=== PATIENT | male | born 1990 | race Caucasian/White ===

== ENCOUNTER 2020-06-11 16:23 | Emergency (ER) | payer OTHER, SELFPAY ==
--- NOTE | ~2020-06-11 | XR_ITS ---
EXAMINATION: XR finger 1st LT min 2V DATE: 06/11/2020 16:46 INDICATION: Penetrating wound to the left thumb. TECHNIQUE: Dorsal palmar and lateral views of the left thumb digit were obtained COMPARISON: Left hand radiographs dated 06/08/2012 FINDINGS: A screwdriver extends through the soft tissues at the ulnar aspect of the left thumb beginning near t he distal tip of the thumb and with the distal tip of the screwdriver position ulnar to the neck of t he proximal phalanx. No acute fracture. Old fourth metacarpal fracture with dorsal plate and screw fi xation which has healed in near-anatomic alignment. Joint spaces are normal. IMPRESSION: 1. Screwdriver in the soft tissues at the ulnar side of the left thumb. No acute osseous abnormality. Reviewed, dictated and finalized at location . [employer] IMPRESSION: 1. Screwdriver in the soft tissues at the ulnar side of the left thumb. No acut e osseous abnormality.
[2020-06-11 16:34] VITALS: BP 166/101; PULSE 75; RESP 18; TEMP 36.6; O2SAT 100
--- NOTE | 2020-06-11 16:54 | ED.UPPEXIN ---
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 While working on [employer] light. Patient denies other injuries. Does remember the last time of having a tetanus shot. Related Data Allergies Allergy/AdvReac Type Severity Reaction Status Date / Time No Known Drug Allergies Allergy Verified 02/10/12 13:55 Review of Systems Review of Systems: Narrative: CONSTITUTIONAL: Denies fever, chills, or sweats. EYES: Denies visual changes, redness, or discharge. ENT: Denies rhinorrhea, congestion, sore throat, or otalgia. CARDIOVASCULAR: Denies chest pain, palpitations, or edema. RESPIRATORY: Denies cough or dyspnea. GASTROINTESTINAL: Denies abdominal pain, nausea, vomiting, or diarrhea. GENITOURINARY: Denies dysuria or hematuria. SKIN: Denies rash or itching. MUSCULOSKELETAL: Denies back pain, joint pain, or myalgia. NEUROLOGIC: Denies headache, numbness, or weakness. PSYCHIATRIC: Denies anxiety or depression. PMFSH Social History Social History Smoking status: Never smoker Alcohol intake: current Exam Narrative: Exam Narrative: General appearance: Well-developed, well-nourished Skin: Normal color Chest and respiratory: Airway patent, no respiratory distress, no accessory muscle use Heart: Regular rate/rhythm Vascular: Normal peripheral pulses, normal capillary refill. Musculoskeletal: Left thumb showed a screwdriver. Penetrated the tip of the thumb at the palmar side parallel to the thumb, about 5 cm deep. No deformity Course Course Emergency Course: Improving Consultations Consultation #1: Dr. Howard Call office tomorrow for appointment Date: 06/11/20 Time: 17:16 Vital Signs Vital signs: Vital Signs Temperature 36.6 C 06/11/20 16:34 Pulse Rate 75 06/11/20 16:34 Respiratory Rate 18 06/11/20 16:34 Blood Pressure 166/101 H 06/11/20 16:34 Pulse Oximetry 100 06/11/20 16:34 Temperature 36.6 C 06/11/20 16:34 Pulse Rate 75 06/11/20 16:34 Respiratory Rate 18 06/11/20 16:34 Blood Pressure 166/101 H 06/11/20 16:34 Pulse Oximetry 100 06/11/20 16:34 Procedures Foreign Body Removal Foreign Body #1: Foreign Body Removal Date: 06/11/20 Foreign Body Removal Time: 16:59 Time Out Performed: no Site: left and other (Thumb) Description of foreign body: other (Screwdriver) Sedation/Analgesia: none Technique: manual removal Confirmed by:: direct visualization Complications: none Post-procedure exam: awake, alert Neurovascular: normal capillary fill, distal motor function normal and no change from pre-procedure Foreign Body Removal Narrative: A screwdriver, penetrated the tip of the left thumb at the palmar side parallel to the thumb, deep about 5 cm. No active bleeding on presentation, Slight bleeding after removal of the screwdriver, Betadine bath, topical Neosporin, thick dressing like splint. MDM - Extremity Injury (Upper) MDM Narrative Medical decision making narrative: Foreign body left thumb, removed Imaging Data Radiologist's impression: Impressions Finger X-Ray 06/11/20 16:55 IMPRESSION: 1. Screwdriver in the soft tissues at the ulnar side of the left thumb. No acute osseous ab
[2020-06-11] MEDS: HYDROcodone/acetaminophen (*CRX) 5-325 MG TABLET 1 TAB PO (17:24)
[2020-06-11] MEDS: IBUPROFEN 600 MG TABLET PO (17:25)
[2020-06-11] MEDS: TETANUS,DIPHTHERIA,AC PERTUSSIS ADULT (0.5 ML) BOOSTRIX IM (17:27)
[2020-06-11] MEDS: CEPHALEXIN 500 MG CAPSULE PO (17:28)
[2020-06-11 17:36] VITALS: BP 139/88; PULSE 70; RESP 16; TEMP 36.7; O2SAT 100
== END 2020-06-11 17:36 | disposition home or self-care (01) ==
PROVIDERS: Emergency Provider Emergency Medicine; PCP Internal Medicine
DX: S61.042A Puncture wound with foreign body of left thumb without damage to nail, initial encounter (principal); W27.0XXA Contact with workbench tool, initial encounter; Z23 Encounter for immunization
CPT/HCPCS: 73140; 90471; 90715; 99283; A9270

== ENCOUNTER 2022-11-30 03:43 | Emergency (ER) | payer BC, SELFPAY ==
--- NOTE | ~2022-11-30 | CT_ITS ---
EXAMINATION: CT abdomen pelvis w con DATE: 11/30/2022 05:19 INDICATION: Right upper quadrant pain. Elevated lipase. TECHNIQUE: Computed tomography (CT) of the abdomen and pelvis was performed with 100 cc Omnipaque 350 intravenous contrast. The dose-length product was 897.78 mGy-cm. Automated exposure control and iter ative reconstruction technique were employed. COMPARISON: None. FINDINGS: Lung bases are unremarkable. Heart size normal. No significant pleural or pericardial effus ion. No significant vascular abnormality. No lymphadenopathy. The spleen, pancreas, adrenal glands and kidneys are unremarkable. Normal appendix. Fatty infiltratio n of the liver. Gallbladder is present. There are mildly thickened small bowel loops in the left mid and upper abdomen, suspicious for enteritis. Normal appendix. Colonic diverticulosis without evidence for diverticulitis. There is free fluid in the pelvis. There are mildly prominent mesenteric lymph n odes, likely reactive. No acute osseous abnormality. IMPRESSION: 1. Abnormal small bowel wall thickening in the left mid and upper abdomen, suspicious for enteritis. Reviewed, dictated and finalized at location A. IMPRESSION: 1. Abnormal small bowel wall thickening in the left mid and upper abdomen, susp icious for enteritis.
[2022-11-30 03:45] VITALS: BP 136/100; PULSE 84; RESP 16; TEMP 36.4; O2SAT 98
[2022-11-30 03:51] VITALS: BP 155/99; PULSE 80; RESP 18; TEMP 36.6; O2SAT 97
[2022-11-30 04:07] LABS: Basophils Absolute Auto 0.1 K/mm3 (0.0-0.1); Basophils Percent Auto 0.7 % (0.2-1.2); Eosinophils Absolute Auto 0.8 K/mm3 (0-0.3); Eosinophils Percent Auto 8.4 % (0-4.4); Hematocrit 47.4 % (42.0-52.0); Hemoglobin 16.4 g/dL (14.0-18.0); Immature Granulocyte Absolute 0.03 K/mm3 (0.00-0.031); Immature Granulocyte Percent A 0.3 % (0-0.5); Lymphocytes Absolute Auto 2.52 K/mm3 (0.9-3.2); Lymphocytes Percent Auto 27.9 % (18.3-44.2); Mean Corpuscular HGB Conc 34.6 g/dl (32-36); Mean Corpuscular Hemoglobin 30.3 pg (26-34); Mean Corpuscular Volume 87.5 fl (80-100); Mean Platelet Volume 9.1 fl (7.4-10.4); Monocytes Absolute Auto 0.8 K/mm3 (0.1-0.6); Monocytes Percent Auto 8.3 % (2.6-8.5); Neutrophils Absolute Auto 4.9 K/mm3 (1.3-6.7); Neutrophils Percent Auto 54.4 % (45.5-73.1); Platelet Count Result 220 k/mm3 (150-375); Red Blood Count 5.42 M/mm3 (4.6-6.20); Red Cell Distribution Width 13.2 % (11.5-14.5)
[2022-11-30 04:16] LABS: Alanine Aminotransferase 51 U/L (6-50); Albumin Level 4.8 g/dL (3.5-5.1); Alkaline Phosphatase 60 U/L (38-126); Anion Gap 9 mmol/L (8-16); Aspartate Amino Transferase 35 U/L (17-59); Bilirubin,Total 0.5 mg/dL (0.2-1.3); Blood Urea Nitrogen 16 mg/dL (9-20); Calcium 9.5 mg/dL (8.4-10.2); Carbon Dioxide 27 mmol/L (22-30); Chloride 104 mmol/L (98-107); Estimated CRCL calculation 130 ml/min; Estimated Glomerular Filt Rate > 60; Glucose 126 mg/dL (65-110); Lipase 1222 U/L (23-300); Potassium 3.8 mmol/L (3.4-5.0); Sodium 140 mmol/L (137-145)
[2022-11-30 04:39] LABS: Appearance Urine Clear (Clear); Bilirubin Urine Negative (Negative); Blood Urine Negative (Negative); Color Urine Yellow (Yellow); Glucose Urine UA Negative (Negative); Ketones Urine Negative (Negative); Leukocyte Esterase Ur Negative LEU/UL (Negative); Nitrate Urine Negative (Negative); Protein Urine Negative (Negative); Specific Grav Ur 1.027 (1.001-1.035); Urobilinogen Urine 0.2 mg/dL (<2.0); pH Urine 5.5 (5.0-9.0)
[2022-11-30 04:47] LABS: Add Urine Microscopic? NO
[2022-11-30] MEDS: SODIUM CHLORIDE 0.9% IV 2,000 ML 999 ML IV CONT (05:16)
[2022-11-30] MEDS: ONDANSETRON INJ 4 MG/2 ML VIAL IV PUSH (05:18)
[2022-11-30] MEDS: FAMOTIDINE 20 MG/2 ML VIAL IV PUSH (05:19)
[2022-11-30] MEDS: HYDROmorphone HCL INJ (*CRX) 1 MG/ML SYR 0.5 MG IV PUSH (05:21)
--- NOTE | 2022-11-30 05:27 | ED.GENADULT ---
HPI - General Adult General Chief complaint: Abdominal Pain <Rolando Taylor MD - Last Filed: 11/30/22 05:32> Stated complaint: acute onset of abdominal pain <Rolando Taylor MD - Last Filed: 11/30/22 05:32> Time Seen by Provider: 11/30/22 03:54 <Rolando Taylor MD - Last Filed: 11/30/22 05:32> History of Present Illness HPI narrative: this is a 32-year-old male presenting ED with a chief complaint of abdominal pain. At 2:00 a.m. the patient was woken from sleep from a stabbing pain in the epigastric area that is nonradiating, 8/10 intensity and comes and goes. He has never had pain like this before there are no exacerbating relieving factors. He did have multiple episodes of nausea and vomiting. he had an episode of diarrhea yesterday. He denies fever, chills, chest pain or difficulty breathing. <Rolando Taylor MD - Last Filed: 11/30/22 05:32> Related Data Home medications: Home Medications Medication Instructions Recorded Confirmed indomethacin 50 mg capsule 50 mg PO TID PRN 11/26/22 <Rolando Taylor MD - Last Filed: 11/30/22 05:32> Allergies/adverse reactions: Allergies Allergy/AdvReac Type Severity Reaction Status Date / Time No Known Drug Allergies Allergy Verified 02/10/12 13:55 <Rolando Taylor MD - Last Filed: 11/30/22 05:32> [facility] Social History Social History: Social History Smoking status: Never smoker Alcohol intake: current <Rolando Taylor MD - Last Filed: 11/30/22 05:32> Exam Narrative: APPEARANCE: No apparent distress. Head: atraumatic. EYES: EOMI, NOSE: Atraumatic NECK: Trachea midline RESPIRATORY: No increased rate of breathing, clear to auscultation CARDIOVASCULAR: RRR, no peripheral edema ABDOMINAL: mild epigastric tenderness, no guarding or rebound MUSCULOSKELETAl: No obvious deformities NEURO: Alert. Moving 4/4 extremities SKIN:: Warm, dry. Normal color PSYCHIATRIC: Normal affect <Rolando Taylor MD - Last Filed: 11/30/22 05:32> Course Reevaluation(s) Reevaluation #1: Patient care was signed out to me by Dr. Taylor with CT pending. Patient is a 32-year-old male who presented to the ED for evaluation of epigastric pain patient states that since arrival the pain has since resolved. Patient denies any complaints at this time. Patient did have an elevated lipase. Patient is afebrile with no leukocytosis. Patient's CMP is within normal limits. CT scan showed evidence of enteritis. Patient and family were updated on the elevated lipase and the results of the CT scan. Patient was provided Zofran for nausea control along with recommendations to follow a clear liquid diet. Patient family were updated on reasons to return to the emergency department and on the importance of close follow-up with primary care physician. All question concerns were addressed. Patient was well-appearing at time of discharge. <Preston Rodriguez MD - Last Filed: 11/30/22 09:20> Vital Signs Vital signs: Vital Signs Temperature 97.5 F L 11/30/22 03:45 Pulse Rate 84 11/30/22 03:45 Respiratory Rate 16 11/30/22 03:45 Blood Pressure 136/100 H 11/30/22 03:45 Pulse Oximetry 98 11/30/22 03:45 Oxygen Delivery Room Air 11/30/22 03:45 Temperature 98 F 11/30/22 03:51 Pulse Rate 61 11/30/22 09:07 Respiratory Rate 16 11/30/22 09:07 Blood Pressure 133/80 11/30/22 09:07 Pulse Oximetry 97 11/30/22 05:51 Oxygen Delivery Room Air 11/30/22 03:45 <Rolando Taylor MD - Last Filed: 11/30/22 05:32> Vital Signs Temperature 97.5 F L 11/30/22 03:45 Pulse Rate 84 11/30/22 03:45 Respiratory Rate 16 11/30/22 03:45 Blood Pressure 136/100 H 11/30/22 03:45 Pulse Oximetry 98 11/30/22 03:45 Oxygen Delivery Room Air 11/30/22 03:45 Temperature 98 F 11/30/22 03:51 Pulse Rate 61 11/30/22 09:07 Respiratory Rate 16 11/30/22
[2022-11-30 05:51] VITALS: BP 141/85; PULSE 71; RESP 15; O2SAT 97
[2022-11-30 09:07] VITALS: BP 133/80; PULSE 61; RESP 16
== END 2022-11-30 08:53 | disposition home or self-care (01) ==
PROVIDERS: Emergency Provider Emergency Medicine; PCP Physician Assistant Medical
DX: R10.13 Epigastric pain (principal); R93.5 Abnormal findings on diagnostic imaging of other abdominal regions, including retroperitoneum
CPT/HCPCS: 36415; 74177; 80053; 81003; 83690; 85025; 96361; 96374; 96375; 99284; J1170; J2405; J7030; Q9967